=== PATIENT | female | born 1995 | race Caucasian/White ===

== ENCOUNTER 2023-02-20 19:25 | Emergency (ER) | payer MEDICAID ==
[~2023-02-20] VITALS: Ht 177.8 cm; Wt 128.2 kg
[2023-02-20 19:48] VITALS: TEMP 98.4
[2023-02-20] MEDS ORDERED: CYCL-1 PO (21:20)
[2023-02-20] MEDS ORDERED: IBUP-1984 PO (21:20)
[2023-02-20] MEDS ORDERED: ketorolac tromethamine 15mg/ml inj. IM ONE (21:20)
[2023-02-20] MEDS ORDERED: morphine 2 MG/ML inj. syringe IM ONE (21:20)
[2023-02-20 21:38] VITALS: BP 129/88; PULSE 89; RESP 17; O2SAT 96
== END 2023-02-20 21:41 | disposition home or self-care (01) ==
LOC: ER 19:26
DX: M79.671 Pain in right foot (principal); M54.9 Dorsalgia, unspecified; Z88.8 Allergy status to other drugs, medicaments and biological substances; Z79.899 Other long term (current) drug therapy; Z88.6 Allergy status to analgesic agent
CPT/HCPCS: 96372; 99284; J1885; J2270